=== PATIENT | female | born 1940 | race Caucasian/White ===

== ENCOUNTER 2020-09-04 17:46 | Inpatient (IN) | payer MEDICARE ==
[~2020-09-04] VITALS: Ht 170.2 cm; Wt 104.5 kg
[~2020-09-04 17:46] MED LIST: ASPI-556 PO; ATOR20TA65 PO; CHOL200074 PO; CYCL30DR OP; FURO20TA6 PO; LOSA100T58 PO; OCUVITE SOFTGE1 EACH PO; POTA20TA82 PO; TRAZ-185 PO; WARF10TA45 PO; WARF7.5T49 PO; triam/hctz PO
[2020-09-04 18:39] LABS: APPEARANCE,URINE CLOUDY (CLEAR); BILIRUBIN,URINE MODERATE (NEGATIVE); COLOR,URINE RED (YELLOW); GLUCOSE, URINE (UA) NEGATIVE (NEGATIVE); KETONES,URINE 5 mg/dL (NEGATIVE); LEUKOCYTE ESTERASE ,URINE TRACE (NEGATIVE); NITRATE,URINE POSITIVE (NEGATIVE); OCCULT BLOOD,URINE LARGE (NEGATIVE); PROTEIN,URINE 100 mg/dL (NEGATIVE)
[2020-09-04 18:46] LABS: BACTERIA,URINE Moderate /HPF (None Seen); RBC,URINE 26-50 /HPF (0-1); SQUAMOUS EPITHELIAL CELL,UR 0-2 /HPF (0-2)
[2020-09-04 18:47] LABS: MUCUS,URINE Few LPF (None Seen)
[2020-09-04 18:47] LABS: BASOPHILS % (AUTO) 0.7 % (0.0-5.0); HEMATOCRIT 39.8 % (36-48); LYMPHOCYTES % (AUTO) 25.3 % (21.0-51.0); MEAN CORPUSCULAR HEMOGLOBIN 29.8 pg (27.0-33.0); MEAN CORPUSCULAR HGB CONC 32.7 g/dL (32.0-36.0); MEAN CORPUSCULAR VOLUME 91.3 fL (79-99); MONOCYTES % (AUTO) 7.6 % (3.0-13.0); NEUTROPHILS % (AUTO) 65.2 % (40.0-77.0); PLATELET COUNT (AUTO) 234 K/uL (130-400); RED BLOOD CELL COUNT(AUTO) 4.36 MIL/uL (4.00-5.50); RED CELL DISTRIBUTION WIDTH 13.4 % (11.0-15.5)
[2020-09-04 19:01] LABS: CREATININE 3.3 mg/dL (0.5-1.5); POTASSIUM 3.8 mmol/L (3.5-5.1)
[2020-09-04 19:05] LABS: ALBUMIN 3.8 g/dL (3.5-5.0); BILIRUBIN,TOTAL 0.6 mg/dL (0.2-1.0); TOTAL PROTEIN, SERUM 7.5 g/dL (6.0-8.3)
[2020-09-04] MEDS ORDERED: SODIUM CHLORIDE 0.9% 100 ML IV ONE (20:11)
[2020-09-04] MEDS ORDERED: CEFTRIAXONE SODIUM 1 GM ONE (20:11)
[2020-09-04] MEDS: SODIUM CHLORIDE 0.9% 1000ML 1,000 ML IV SCH (21:15)
[2020-09-05] VITALS: BP 111/53
[2020-09-05] MEDS ORDERED: NITROGLYCERIN 0.4 MG SL TAB SL PRN (01:00)
[2020-09-05] MEDS ORDERED: ACETAMINOPHEN 325 MG TAB PO PRN (01:00)
[2020-09-05] MEDS ORDERED: ONDANSETRON HCL 4 MG/2 ML VIAL IV PRN (01:00)
[2020-09-05] MEDS ORDERED: ZOLPIDEM TARTRATE 5 MG TAB PO PRN (01:00)
[2020-09-05] MEDS ORDERED: HYDRALAZINE HCL 20 MG/ML VIAL IV PRN (01:00)
[2020-09-05] MEDS ORDERED: ACETAMINOPHEN-CODEINE 300/30MG TAB PO PRN (01:00)
[2020-09-05] MEDS ORDERED: MAG HYDROX/AL HYDROX/SIMETH ES 30 ML SUSP UDCUP PO PRN (01:00)
[2020-09-05] MEDS ORDERED: DIPHENHYDRAMINE HCL 25 MG CAPSULE PO PRN (01:00)
[2020-09-05] MEDS ORDERED: DiphenhydrAMINE HCL 50 MG/ML VIAL IV PRN (01:00)
[2020-09-05] MEDS ORDERED: LACTULOSE 20 GM/30 ML UDCUP PO PRN (01:00)
[2020-09-05] MEDS ORDERED: GUAIFENESIN-DM 200/20 MG 10 ML PO PRN (01:00)
[2020-09-05] MEDS ORDERED: TRAZODONE HCL 50 MG TAB ONE (01:02)
[2020-09-05 01:32] LABS: INR 2.51 (0.85-1.15); PARTIAL THROMBOPLASTIN TIME 35.9 SEC (26.3-35.5); PROTHROMBIN TIME 26.2 SEC (9.6-11.6)
[2020-09-05 04:29] VITALS: BP 119/57
[2020-09-05] MEDS: SODIUM CHLORIDE 0.9% 1000ML 1,000 ML IV SCH ×2 (06:21→18:08)
[2020-09-05 08:01] VITALS: BP 118/62
[2020-09-05] MEDS: CEFTRIAXONE SODIUM 1 GM IV SCH (09:12)
[2020-09-05] MEDS ORDERED: WARF-57 PO (09:53)
[2020-09-05] MEDS: ACETAMINOPHEN 325 MG TAB PO PRN ×2 (09:58→20:40)
[2020-09-05 11:12] LABS: BASOPHILS % (AUTO) 0.6 % (0.0-5.0); HEMATOCRIT 37.1 % (36-48); LYMPHOCYTES % (AUTO) 22.7 % (21.0-51.0); MEAN CORPUSCULAR HEMOGLOBIN 30.6 pg (27.0-33.0); MEAN CORPUSCULAR HGB CONC 33.4 g/dL (32.0-36.0); MEAN CORPUSCULAR VOLUME 91.6 fL (79-99); MONOCYTES % (AUTO) 9.5 % (3.0-13.0); PLATELET COUNT (AUTO) 198 K/uL (130-400); RED BLOOD CELL COUNT(AUTO) 4.05 MIL/uL (4.00-5.50); RED CELL DISTRIBUTION WIDTH 13.4 % (11.0-15.5); WHITE BLOOD COUNT (AUTO) 4.9 K/uL (4.8-10.8)
[2020-09-05 11:22] VITALS: BP 110/60
[2020-09-05 11:29] LABS: ALBUMIN 3.1 g/dL (3.5-5.0); BILIRUBIN,TOTAL 1.1 mg/dL (0.2-1.0); POTASSIUM 4.2 mmol/L (3.5-5.1); TOTAL PROTEIN, SERUM 6.6 g/dL (6.0-8.3)
[2020-09-05 15:35] VITALS: BP 135/80
[2020-09-05 20:49] VITALS: BP 142/51
[2020-09-05] MEDS ORDERED: TRAZODONE HCL 50 MG TAB PO SCH (21:00)
[2020-09-06] VITALS: BP 122/59
[2020-09-06] MEDS: SODIUM CHLORIDE 0.9% 1000ML 1,000 ML IV SCH ×2 (02:29→06:22)
[2020-09-06 04:00] VITALS: BP 114/66
[2020-09-06 06:33] LABS: BASOPHILS % (AUTO) 0.9 % (0.0-5.0); HEMATOCRIT 35.4 % (36-48); LYMPHOCYTES % (AUTO) 30.9 % (21.0-51.0); MEAN CORPUSCULAR HEMOGLOBIN 29.5 pg (27.0-33.0); MEAN CORPUSCULAR HGB CONC 32.2 g/dL (32.0-36.0); MEAN CORPUSCULAR VOLUME 91.7 fL (79-99); MONOCYTES % (AUTO) 10.6 % (3.0-13.0); NEUTROPHILS % (AUTO) 53.4 % (40.0-77.0); PLATELET COUNT (AUTO) 190 K/uL (130-400); RED BLOOD CELL COUNT(AUTO) 3.86 MIL/uL (4.00-5.50); RED CELL DISTRIBUTION WIDTH 13.4 % (11.0-15.5); WHITE BLOOD COUNT (AUTO) 4.7 K/uL (4.8-10.8)
[2020-09-06 07:05] LABS: ALBUMIN 2.8 g/dL (3.5-5.0); BILIRUBIN,TOTAL 0.6 mg/dL (0.2-1.0); CREATININE 1.4 mg/dL (0.5-1.5); MAGNESIUM 1.8 mg/dL (1.80-2.40); PHOSPHORUS 3.4 mg/dL (2.5-4.9); POTASSIUM 3.8 mmol/L (3.5-5.1); TOTAL PROTEIN, SERUM 5.9 g/dL (6.0-8.3); URIC ACID 6.5 mg/dL (2.6-7.2)
[2020-09-06 07:14] LABS: B-TYPE NATRIURETIC PEPTIDE 144 pg/mL (0-100)
[2020-09-06 07:30] VITALS: BP 139/77
[2020-09-06 07:38] LABS: INR 2.2 (0.85-1.15); PARTIAL THROMBOPLASTIN TIME 33.5 SEC (26.3-35.5); PROTHROMBIN TIME 23.1 SEC (9.6-11.6)
[2020-09-06] MEDS: CEFTRIAXONE SODIUM 1 GM IV SCH (08:53)
[2020-09-06] MEDS ORDERED: Vitamin B Complex/Vit C/Folic Acid PO SCH (09:00)
[2020-09-06 11:00] VITALS: BP 126/64
[2020-09-06] MEDS ORDERED: NITR100C PO (14:30)
== END 2020-09-06 17:33 | disposition home or self-care (01) | DRG 684 ==
LOC: EDH 17:46 → EDHIP 20:24 → OBSVTOIN 20:24 → 3DH 21:26
PROVIDERS: ADMIT Internal Medicine; ATTEND Internal Medicine
DX: N17.9 Acute kidney failure, unspecified (principal); R31.0 Gross hematuria; R34 Anuria and oliguria; I48.0 Paroxysmal atrial fibrillation; R32 Unspecified urinary incontinence; E78.5 Hyperlipidemia, unspecified; I12.9 Hypertensive chronic kidney disease with stage 1 through stage 4 chronic kidney disease, or unspecified chronic kidney disease; N18.9 Chronic kidney disease, unspecified; K59.00 Constipation, unspecified; Z96.653 Presence of artificial knee joint, bilateral; Z90.49 Acquired absence of other specified parts of digestive tract; Z79.01 Long term (current) use of anticoagulants; Z95.0 Presence of cardiac pacemaker
CPT/HCPCS: 36415; 71045; 74176; 76770; 80053; 81001; 83735; 83880; 84100; 84550; 85025; 85610; 85730; 87088; A4344; G0378; J0696; J7030

== ENCOUNTER → 2021-04-05 | Outpatient (CLI) | payer MEDICARE ==
[~2021-04-05] MED LIST changes: -FURO20TA6 PO; -LOSA100T58 PO; +NITR100C PO; -POTA20TA82 PO; +WARF-57 PO; -WARF10TA45 PO; -triam/hctz PO
[2021-04-05 11:25] LABS: BASOPHILS % (AUTO) 0.8 % (0.0-5.0); EOSINOPHILS % (AUTO) 2.7 % (0.0-8.0); HEMATOCRIT 41.5 % (36-48); LYMPHOCYTES % (AUTO) 24.7 % (21.0-51.0); MEAN CORPUSCULAR HEMOGLOBIN 29.8 pg (27.0-33.0); MEAN CORPUSCULAR HGB CONC 32.3 g/dL (32.0-36.0); MEAN CORPUSCULAR VOLUME 92.2 fL (79-99); MONOCYTES % (AUTO) 9.2 % (3.0-13.0); NEUTROPHILS % (AUTO) 62.4 % (40.0-77.0); PLATELET COUNT (AUTO) 275 K/uL (130-400); RED CELL DISTRIBUTION WIDTH 13.4 % (11.0-15.5); WHITE BLOOD COUNT (AUTO) 6.4 K/uL (4.8-10.8)
[2021-04-05 11:46] LABS: CREATININE 1.1 mg/dL (0.5-1.5); POTASSIUM 4.9 mmol/L (3.5-5.1)
== END | disposition home or self-care (01) ==
LOC: LAB 10:27
PROVIDERS: ATTEND Urology
DX: R31.29 Other microscopic hematuria (principal)
CPT/HCPCS: 36415; 80048; 85025

== ENCOUNTER → 2021-04-11 | Outpatient (CLI) | payer MEDICARE ==
[~2021-04-11] MED LIST changes: +IOHEXOL-350 75 ML VIAL IV ONE
== END | disposition home or self-care (01) ==
LOC: RAH 08:31
PROVIDERS: ATTEND Urology
DX: K80.20 Calculus of gallbladder without cholecystitis without obstruction (principal); I51.7 Cardiomegaly; K57.30 Diverticulosis of large intestine without perforation or abscess without bleeding; Z90.710 Acquired absence of both cervix and uterus; M47.814 Spondylosis without myelopathy or radiculopathy, thoracic region; M51.35 Other intervertebral disc degeneration, thoracolumbar region
CPT/HCPCS: 74178; Q9967

== ENCOUNTER → 2023-12-23 | Outpatient (CLI) | payer MEDICARE ==
[~2023-12-23] MED LIST changes: -IOHEXOL-350 75 ML VIAL IV ONE
== END | disposition home or self-care (01) ==
LOC: RAH 14:06
PROVIDERS: ATTEND Family Medicine
DX: S00.03XD Contusion of scalp, subsequent encounter (principal); S09.90XD Unspecified injury of head, subsequent encounter; X58.XXXD Exposure to other specified factors, subsequent encounter
CPT/HCPCS: 70450

== ENCOUNTER → 2024-06-05 | Emergency (ER) | payer MEDICARE ==
[~2024-06-05] VITALS: Ht 170.2 cm; Wt 83.5 kg
[~2024-06-05] MED LIST changes: +ACET-2079 PO; +FURO20TA4 PO; +LOSA100T59 PO; +MAGN100C6 PO; +MELA1TAB16 PO; +METH4TAB3 PO; +POTA-364 PO; +TRIA1TAB3 PO
[2024-06-05 16:15] VITALS: BP 166/87; PULSE 72; RESP 20; TEMP 98.8; O2SAT 97
[2024-06-05] MEDS: ONDANSETRON 4MG INJ IVP ONE (17:00)
[2024-06-05] MEDS: ketOROlac 30MG VIAL (30MG/ML) IVP ONE (17:00)
[2024-06-05] MEDS: Solu-medROL 125MG VIAL IVP ONE (17:00)
[2024-06-05] MEDS: acetaMINOPHEN 500 MG TABLET PO ONE (17:00)
[2024-06-05] MEDS: morPHINE 2 MG SYG IVP ONE (17:01)
== END ==
LOC: EDH 16:06
DX: M25.511 Pain in right shoulder (principal); M19.011 Primary osteoarthritis, right shoulder; E78.00 Pure hypercholesterolemia, unspecified; I10 Essential (primary) hypertension; Z79.621 Long term (current) use of calcineurin inhibitor; Z95.810 Presence of automatic (implantable) cardiac defibrillator
CPT/HCPCS: 99284; 96374; 96375; 73030; J2270; J2919; J2405; J1885

== ENCOUNTER 2024-07-07 17:50 | Emergency (ER) | payer MEDICARE ==
[~2024-07-07] VITALS: Ht 170.2 cm; Wt 83.5 kg
[2024-07-07] MEDS: ondanSETRON 4MG INJ IVP ONE (18:22)
[2024-07-07] MEDS: morPHINE 2 MG SYG IVP ONE (18:22)
[2024-07-07] MEDS: dexaMETHasone SOD PHOSPHATE 4 MG/ML 1ML VIAL IVP ONE (18:22)
[2024-07-07] MEDS ORDERED: ACET-2079 PO (19:07)
[2024-07-07] MEDS: ketOROlac 30MG VIAL (30MG/ML) IVP ONE (19:12)
[2024-07-07 19:14] VITALS: BP 144/71; PULSE 70; RESP 18; TEMP 98.2; O2SAT 9
[2024-07-07] MEDS: morPHINE 4 MG SYG IVP ONE (19:33)
== END 2024-07-07 20:07 | disposition home or self-care (01) ==
LOC: EDH 17:50
DX: M19.011 Primary osteoarthritis, right shoulder (principal); M25.511 Pain in right shoulder; E78.00 Pure hypercholesterolemia, unspecified; I10 Essential (primary) hypertension; Z79.621 Long term (current) use of calcineurin inhibitor; Z95.810 Presence of automatic (implantable) cardiac defibrillator
CPT/HCPCS: 99284; 96374; 96375; 96376; J1100; J2270 ×2; J2405; J1885

== ENCOUNTER → 2025-05-04 | Outpatient (CLI) | payer MEDICARE ==
--- NOTE | 2025-05-05 16:47 | HMCSR ---
APPROVED REPORT INDICATION Cardiomyopathy PROCEDURE The patient was injected with 12.5 mg of cold stannous pyrophosphate. After 20-30 minutes the patien t was injected with 26 mCi of Technetium-99m Pertechnate. The patient was then imaged with ECG gating in the planar THAI, anterior and lateral view(s). Findings Image quality is fair. LV Size: Mildly dilated The calculated left ventricular ejection fraction is 30%. Visually, the left ventricular ejection fra ction is the calculated ejection fraction. Impressions Abnormal MUGA study. Moderately decreased left ventricular systolic function. Calculated left ventricular ejection fraction is 30%.
== END | disposition home or self-care (01) ==
LOC: RAH 13:11
PROVIDERS: ATTEND Internal Medicine Cardiovascular Disease
DX: I51.7 Cardiomegaly (principal); I42.9 Cardiomyopathy, unspecified; R94.39 Abnormal result of other cardiovascular function study
CPT/HCPCS: 78481; A9512